=== PATIENT | female | born 1960 | race Caucasian/White ===

== ENCOUNTER 2016-12-30 19:50 | Emergency (ER) | payer MEDICARE, BC ==
[2016-12-30 20:02] VITALS: BP 173/87
--- NOTE | 2016-12-30 20:18 | ER Document Report ---
ED Medical Screen (RME) - General Stated Complaint: TOOTH PAIN Notes: Patient has right lower dental pain that started this morning. I have greeted and performed a rapid initial assessment of this patient. A comprehensive ED assessment and evaluation of the patient, analysis of test results and completion of the medical decision making process will be conducted by additional ED providers. TRAVEL OUTSIDE OF THE [place] IN LAST 30 DAYS: No - Related Data Allergies/Adverse Reactions: Sulfa (Sulfonamide Antibiotics) Allergy (Verified 12/30/16 20:15) Past Medical History Pulmonary Medical History: Reports: Hx Asthma Psychiatric Medical History: Reports: Hx Depression Past Surgical History: Reports: Hx Hysterectomy, Hx Tubal Ligation - Immunizations Hx Diphtheria, Pertussis, Tetanus Vaccination: - unknown Physical Exam - Vital signs Vitals: Temp Pulse Resp BP Pulse Ox 99.2 F 98 16 173/87 H 98 12/30/16 20:01 12/30/16 20:01 12/30/16 20:01 12/30/16 20:01 12/30/16 20:01 - HEENT Teeth diagram: 1 - decay Course - Vital Signs Vital signs: Temp Pulse Resp BP Pulse Ox 99.2 F 98 16 173/87 H 98 12/30/16 20:01 12/30/16 20:01 12/30/16 20:01 12/30/16 20:01 12/30/16 20:01
[2016-12-30] MEDS ORDERED: IBUPROFEN 800 MG TABLET PO ONE (20:19)
== END 2016-12-30 20:53 | disposition left against medical advice (07) ==
LOC: ER 19:50
DX: K02.9 Dental caries, unspecified (principal); K08.89 Other specified disorders of teeth and supporting structures; J45.909 Unspecified asthma, uncomplicated; Z88.2 Allergy status to sulfonamides; Z53.20 Procedure and treatment not carried out because of patient's decision for unspecified reasons
CPT/HCPCS: 99281; A9270

== ENCOUNTER → 2017-06-20 | Outpatient (CLI) | payer MEDICARE, BC ==
--- NOTE | 2017-06-20 10:19 | ST Modified Barium Swallow ---
Recommendation - Recommendations Recommendations: Recommend continuing with outpatient speech therapy home programming. Also recommend mechanical soft diet with hard swallows and alternating bites/sips during meals. Medical Diagnoses - Medical Diagnoses Medical Diagnosis Description & ICD-10 Code(s): dysphagia R13.10 Other Medical Diagnoses/Co-Morbidities: per emr: depression, anxiety, arthritis (causes pain in low back & hips), polyneuropathy (affects left leg), history of lyme disease, enmanuel mountain spotted fever ST Modified Barium Swallow - General Date: 06/20/17 Referring Physician: Dr. Jay Reason for Referral: choking episodes - History History obtained from: Patient, Other - EMR -: Medical - History given per outpatient evaluation: Patient reports diagnosed with Parkinson's disease in October,. Reports speech has worsened in last few weeks. Patient referred to speech therapy by neurologist, Dr. Reid, on . Reports does not have tremors, but does have difficulties speaking and swallowing. Patient reports that she has difficulty chewing meats & swallowing meats, reports eats mainly soft foods, difficulty swallowing pills, and that fermin runs out of her mouth when taking medications or drinking from straw. Reports that for speech, her has difficulty understanding her, that she has slurred speech, and that it is frustrating. Reports when last saw neurologist he increased Miraplex - states dose doubled. However patient expressed concerns that medication negatively affectes speech. Speech language pathologist advised patient to discuss with neurologist. Patient reports recently lost weight, but reports due to antibiotic for lyme disease and enmanuel mountain spotted fever. Patient also reports repeated falls, balance problems, neuropathy in left leg. Medications: Tramadol, Lyrica, Coazepam, Buspar, Abilify. Allergies: sulfa drugs, penicillin - Functional Status Prior Functional Status: INDEPENDENT: feeding - independent Current Functional Limitations: feeding - modified diet - Subjective Patient/caregiver goal(s): safe swallow Cognitive-Linguistic Function: Functional Speech Intelligibility: Reduced intelligibility - mild Current Nutritional Means: PO Current PO diet: Mechanical - cut Current symptoms: Coughing - choking episodes, Drooling Pain: Patient reports, 2/5 - hip pain - Objective Assessment: Upright, Left Lateral - Food Trials Used Food trials used: Thin liquids, Pureed, Regular The patient: Was Able to Self Feed - Oral-Motor Skills Laryngeal Function: Volitional Cough - WNL, Volitional Swallow - WNL, clear voicing - Assessment Oral prep: Normal Labial closure: Adequate Leakage: None Mastication: Adequate Lingual Movement: Weak - reduced lingual lateralization seen Oral stage: Mildly Impaired, Normal for this Procedure - Pharyngeal Stage Initiation of Pharyngeal Stage Reflex: Normal Decreased laryngeal elevation: No Reduced pressure generation: No reduced tongue-based retraction: Yes Pre-swallow pooling in valleculae: None Pre-Swallow pooling in pyriforms: None Reduced Thyro-Hyoid approximation: No Reduced epiglottic excursion: No Post-swallow residulas vallecular: Mild - Fall Risk Assessment Medications/Conditions that increase fall risks include: Antidepressants, sedatives, anti-arrhythmic, diuretic, benzodiazipenes, neuroleptics. BP regulation problems, cardiac problems, balance or gait deficits, neurological problems. Fall Risk Actions Taken: No action needed - Behavioral Observations During evaluation process patient: was pleasant, was cooperative, able to answer questions, provided medical history Mental Status: Alert & Oriented X3 - Treatment / Educational Needs: Treatment/Education Needs: Treatment consisted of patient education on the role of the Speech Pathologist. Patient's plan of care and golas were communicated as well as scheduling and attendance policies. Recommendations for initial home program were shared. Patient demonstrated understanding and verbalized agreement. - Impression/Summary Laryngeal Penetration: No Tracheal Aspiration: no Patient presents with: Oral-Pharyngeal dysph., Mild-Moderate Risk of Aspiration: Minimal Risk of nutritional compromise: None Evaluation and Findings: Patient seen to have residue present at base of tongue after trials of puree and regular textures. This residue resulted in some pooling in valleculae post swallow, able to clear with second swallow. Other swallowing function appeared to be WFL. - Recommendations Solid diet recommendations: Mechanical Soft, Ground Meat, Chopped Meat Liquid Diet Modification: Thin Pt/Family education and followup with MD: Yes Dysphagia therapy with [employer]: dysphagia therapy - currently participating in outpatient speech therapy Recommended techniques: Alternate Bites/Sips Information, Precautions and Recommendations: Patient (Written), Patient (Verbal ) - Time Total Time: 20 - Plan of Care POC Procedures/Codes: other - Outpatient treating therapist to establish goals/ procedures based on assessment results. Strategies to optimize patient understanding include:: ongoing assessment of educational needs, implementation of educational strategies, and re-education. - - -: Thank you for the opportunity to work with this patient and his/her family. Should you have any questions about this patient's plan or progress, I can be reached at [phone]. Charge G Code? - - -: Yes ST Jarquin Impairment Category - Rationale Based On Rationale Based On: Clin Find., Obj Measures - Swallowing Current G8996: CJ 20-39% Impaired Goal G8997: CI 1-19% Impaired
--- NOTE | 2017-06-20 15:14 | RADIOLOGY REPORT (SQ) ---
EXAM DESCRIPTION: SONIYA SWALLOW COMPLETED DATE/TIME: 06/20/2017 8:24 am REASON FOR STUDY: DYSPHAGIA R13.10 DYSPHAGIA, UNSPECIFIED COMPARISON: None. TECHNIQUE: Videofluoroscopic swallowing examination was performed in conjunction with speech patholo gy. Videofluoroscopic imaging was obtained and reviewed and these are the findings: RADIATION DOSE: 1 minutes 44 seconds of fluoroscopy was used. 1 images saved to PACS. LIMITATIONS: None FINDINGS: The patient was brought into the fluoro room and placed upright on a modified barium swall ow chair. The patient was then given multiple consistencies mixed with barium to swallow under live fluoroscopic video guidance. According to the Speech Pathologist there was no penetration or aspirat ion. Surgical plate and screws are seen overlying the lower cervical spine. IMPRESSION: NO EVIDENCE OF PENETRATION OR ASPIRATION. PLEASE SEE SPEECH PATHOLOGIST REPORT FOR OTHE R FINDINGS AND RECOMMENDATIONS. COMMENT: Quality ID [id number]: Final reports for procedures using fluoroscopy that document radiation exp osure indices, or exposure time and number of fluorographic images (if radiation exposure indices are not available) TECHNICAL DOCUMENTATION: JOB ID: [id number] [employer]- All Rights Reserved
== END ==
LOC: RAD 07:45
PROVIDERS: ATTEND Psychiatry & Neurology Neurology
DX: R13.10 Dysphagia, unspecified (principal)
CPT/HCPCS: 74230; G8996; G8997

== ENCOUNTER → 2017-06-27 | Outpatient (CLI) | payer MEDICARE, BC ==
--- NOTE | 2017-06-27 08:21 | RADIOLOGY REPORT (SQ) ---
EXAM DESCRIPTION: MRI HEAD WITHOUT COMPLETED DATE/TIME: 06/27/2017 7:40 am REASON FOR STUDY: PARKINSON'S DISEASE (G20), HEADACHE (R51), SLURRED SPEECH (R47.81) G20 PARKINSON' S DISEASE R51 HEADACHE R47.81 SLURRED SPEECH COMPARISON: 08/11/2016. TECHNIQUE: Multiplanar imaging includes non-contrasted T1, T2, FLAIR, and diffusion with ADC map seq uences. Images stored on PACS. LIMITATIONS: None. FINDINGS: ANATOMY: No anomalies. Normal vascular flow voids. Pituitary fossa normal. CSF SPACES: Normal in size and contour. No hemorrhage. CEREBRUM: Sulci and gyri normal in size and contour. Normal white matter signal on FLAIR imaging. No evidence of hemorrhage, mass, or extraaxial fluid collection. POSTERIOR FOSSA: No signal alteration. No hemorrhage. No edema, masses or mass effect. Internal malik tory canals, cerebello-pontine angles, mastoids normal. DIFFUSION IMAGING: Negative for acute or sub-acute infarction. ORBITS: No masses. Globes normal. PARANASAL SINUSES: Extensive mucous membrane thickening throughout the paranasal sinuses. OTHER: No other significant finding. IMPRESSION: NORMAL MRI OF THE BRAIN WITHOUT INTRAVENOUS GADOLINIUM CONTRAST. EXTENSIVE SINUS DISEASE. EVIDENCE OF ACUTE STROKE: NO. TECHNICAL DOCUMENTATION: JOB ID: [id number] [employer]- All Rights Reserved
== END ==
LOC: RAD 06:58
PROVIDERS: ATTEND Family Medicine
DX: G20 Parkinson's disease (principal); R51 Headache; R47.81 Slurred speech
CPT/HCPCS: 70551

== ENCOUNTER → 2017-08-17 | Outpatient (CLI) | payer MEDICARE, BC ==
--- NOTE | 2017-08-18 12:49 | WOMENS IMAGING REPORT ---
EXAM DESCRIPTION: BILAT SCREENING MAMMO W/CAD COMPLETED DATE/TIME: 08/18/2017 11:30 am REASON FOR STUDY: ROUTINE BILATERAL SCREENING;Z12.31 Z12.31 ENCNTR SCREEN MAMMOGRAM FOR MALIGNANT N EOPLASM OF PRINCE COMPARISON: 2009. 2013. 2015 TECHNIQUE: Standard craniocaudal and mediolateral oblique views of each breast recorded using digita l acquisition. Additional "push-back" craniocaudal and mediolateral oblique images acquired. LIMITATIONS: None. FINDINGS: IMPLANTS: Bilateral subpectoral implants. Findings present which are benign by mammographic criteria. No suspicious masses, calcifications or architectural distortion. Read with the assistance of CAD. .[facility] - R2 Cenova Version 1.3 .[facility] Imaging - R2 Cenova Version 1.3 .[facility] - R2 Cenova Version 2.4 .[facility] [place] Cenova [place] 2.4 .[facility], [facility] - R2 [employer]ic Version 9.2 Benign mammographic findings may include one or more of the following: Smooth masses, popcorn/rim/co arse calcifications, asymmetries, post-procedure changes, and lesions with long-standing stability. IMPRESSION: BENIGN MAMMOGRAPHIC FINDINGS. BIRADS 2 BREAST DENSITY: b. There are scattered areas of fibroglandular density. BIRAD: 2 BENIGN FINDING(S) RECOMMENDATION: ROUTINE SCREENING COMMENT: The patient has been notified of the results by letter per SA requirements. Additional no tification policies are in place for contacting patient with suspicious or incomplete findings. Quality ID #[id number]: The [employer] recommends an annual screening mammogram for women aged 40 years or over. This facility utilizes a reminder system to ensure that all patients receive reminder letters, and/or direct phone calls for appointments. This includes reminders for routine scr eening mammograms, diagnostic mammograms, or other Breast Imaging Interventions when appropriate. Th is patient will be placed in the appropriate reminder system. The [employer] ([employer]) has developed recommendations for screening MRI of the breast s in certain patient populations, to be used in conjunction with mammography. Breast MRI surveillanc e may be appropriate for women with more than 20% lifetime risk of developing breast cancer as deter mined by genetic testing, significant family history of the disease, or history of mantle radiation f or Hodgkins Disease. ACR Practice Guidelines 2008. TECHNICAL DOCUMENTATION: FINDING NUMBER: (1) ASSESSMENT: (1) JOB ID: [id number] [employer]- All Rights Reserved
== END ==
LOC: WI 08:24
PROVIDERS: ATTEND Family Medicine
DX: Z12.31 Encounter for screening mammogram for malignant neoplasm of breast (principal); Z98.82 Breast implant status
CPT/HCPCS: 77067; G0202

== ENCOUNTER 2017-10-02 08:49 | Emergency (ER) | payer MEDICARE, BC ==
[2017-10-02 08:57] VITALS: BP 131/84
--- NOTE | 2017-10-02 09:38 | ER Document Report ---
ED ENT - General Chief Complaint: Ear Injury Stated Complaint: RIGHT EAR LACERATION Time Seen by Provider: 10/02/17 09:10 Mode of Arrival: Ambulatory Information source: Patient Notes: 57-year-old female presented to ED for a laceration to her right earlobe. She states yesterday she was putting her ear ringing in and it was a wire type tear ring and went right through her earlobe. She states she did not come in yesterday but wanted her ear repaired today. I explained to her that we could not be. The ear 24 hours after the injury. TRAVEL OUTSIDE OF THE [place] IN LAST 30 DAYS: No - HPI Onset: Yesterday Onset/Duration: Sudden Severity: None Pain Level: Denies Context: Injury Location of pain: Ears Associated symptoms: Other - Torn earlobe from a earring tearing to her earlobe Similar symptoms previously: No Recently seen / treated by doctor: No - Related Data Allergies/Adverse Reactions: Sulfa (Sulfonamide Antibiotics) Allergy (Verified 10/02/17 08:50) Past Medical History - General Information source: Patient - Social History Smoking Status: Current Every Day Smoker Cigarette use (# per day): Yes - Half pack per day Chew tobacco use (# tins/day): No Smoking Education Provided: Yes - 4 minutes Frequency of alcohol use: None Drug Abuse: None Occupation: None Lives with: Family Family History: Reviewed & Not Pertinent, Other Patient has suicidal ideation: No Patient has homicidal ideation: No - Past Medical History Cardiac Medical History: Reports: None Pulmonary Medical History: Reports: Hx Asthma EENT Medical History: Reports: None Neurological Medical History: Reports: None Endocrine Medical History: Reports: None Renal/ Medical History: Reports: None Malignancy Medical History: Reports: None GI Medical History: Reports: None Musculoskeltal Medical History: Reports None Skin Medical History: Reports None Psychiatric Medical History: Reports: Hx Depression Traumatic Medical History: Reports: None Past Surgical History: Reports: Hx Hysterectomy, Hx Tubal Ligation - Immunizations Hx Diphtheria, Pertussis, Tetanus Vaccination: - unknown Hx Pneumococcal Vaccination: 07/02/16 Review of Systems - Review of Systems Constitutional: No symptoms reported EENT: Other - Torn earlobe on the right Cardiovascular: No symptoms reported Respiratory: No symptoms reported Gastrointestinal: No symptoms reported Genitourinary: No symptoms reported Female Genitourinary: No symptoms reported Musculoskeletal: No symptoms reported Skin: No symptoms reported Hematologic/Lymphatic: No symptoms reported Neurological/Psychological: No symptoms reported -: Yes All other systems reviewed and negative Physical Exam - Vital signs Vitals: Temp Pulse Resp BP Pulse Ox 98.1 F 108 H 18 131/84 H 97 10/02/17 08:56 10/02/17 08:56 10/02/17 08:56 10/02/17 08:56 10/02/17 08:56 Interpretation: Normal - General General appearance: Appears well, Alert - HEENT Head: Normocephalic, Atraumatic Eyes: Normal Pupils: PERRL Ears: Other - Right earlobe torn from an ear ring External canal: Normal Tympanic membrane: Normal Sinus: Normal Nasal: Normal Mouth/Lips: Normal Mucous membranes: Normal Pharynx: Normal Neck: Normal - Respiratory Respiratory status: No respiratory distress Chest status: Nontender Breath sounds: Normal Chest palpation: Normal - Cardiovascular Rhythm: Regular Heart sounds: Normal auscultation Murmur: No - Abdominal Inspection: Normal Distension: No distension Bowel sounds: Normal Tenderness: Nontender Organomegaly: No organomegaly - Back Back: Normal, Nontender - Extremities General upper extremity: Normal inspection, Nontender, Normal color, Normal ROM , Normal temperature General lower extremity: Normal inspection, Nontender, Normal color, Normal ROM , Normal temperature, Normal weight bearing. No: Anjali's sign - Neurological Neuro grossly intact: Yes Cognition: Normal Orientation: AAOx4 [place] Coma Scale Eye Opening: Spontaneous [place] Coma Scale Verbal: Oriented Nanda Coma Scale Motor: Obeys Commands [place] Coma Scale Total: 15 Speech: Normal Motor strength normal: LUE, RUE, LLE, RLE Sensory: Normal - Psychological Associated symptoms: Normal affect, Normal mood - Skin Skin Temperature: Warm Skin Moisture: Dry Skin Color: Normal Course - Re-evaluation Re-evalutation: 10/02/17 22:26 Patient informed we could not suture this at this time that the only person who could repair this now would be a plastic surgeon. Patient given name and number of plastic surgeon. - Vital Signs Vital signs: Temp Pulse Resp BP Pulse Ox 98.1 F 108 H 18 131/84 H 97 10/02/17 08:56 10/02/17 08:56 10/02/17 08:56 10/02/17 08:56 10/02/17 08:56 Discharge - Discharge Clinical Impression: HTN (hypertension) Torn right ear lobe Qualifiers: Encounter type: initial encounter Qualified Code(s): S01.311A - Laceration without foreign body of right ear, initial encounter Condition: Stable Disposition: HOME, SELF-CARE Additional Instructions: You were seen today for a torn earlobe while placing a hearing in your ear. This was done yesterday and cannot be sutured today in the emergency room. I have given you the name and number of Dr. Marrero to follow-up with he has a plastic surgeon. NON-SUTURED LACERATION: Your laceration did not require suturing. Some lacerations cannot be sutured because of increased infection risk, while others simply don't need stitches because they are shallow or very short. Your injury should be protected while it heals. Usually complete healing takes 10 to 14 days. Keep the dressing clean and dry, and change it every day. If you notice increasing pain, redness, swelling, drainage, or tender lumps in the armpit or groin above the injury, infection may be present. You should call the doctor at once. SOAP CLEANSING: Gently wash the wound daily using a mild soap (like Ivory, Phisoderm, Neutrogena). Use warm water, rubbing gently until all debris, ooze, and crusting have been washed from the wound. Allow to dry briefly (about 10 minutes) after cleaning. Repeat this cleansing at least three times a day for the first two days and then once or twice a day. High Blood Pressure When your blood pressure was taken today it was elevated. Today's reading was__131/84 . Pre-hypertension/Hypertension: The patient has been informed that they may have pre-hypertension or Hypertension based on a blood pressure reading in the emergency department. I recommend that the patient call the primary care provider listed on their discharge instructions or a physician of their choice this wee to arrange follow up for further evaluation of possible pre- hypertension or Hypertension. Sometimes, stress or illness causes a temporary elevation of your blood pressure. We suggest that you get your blood pressure measured three more times during the next few days to see if this is more than a temporary abnormality. If your blood pressure is greater than 150/90 on each occasion, you must have treatment. Some simple things you can do to help are: If you have blood pressure medicine but aren't using it regularly, start taking it again. Get some aerobic exercise for at least 20 minutes on a daily basis. (See your doctor before beginning a new exercise program.) Eat a low-fat diet. Lose excess weight. Avoid salty foods and avoid adding salt to any of the foods you eat. Avoid diet pills, decongestants, "energizing" herbs, and other medicines that elevate blood pressure. If left untreated, hypertension greatly enhances your risk for developing heart disease and strokes. Please don't ignore this problem. ANTIBIOTIC OINTMENT PROTECTION: Your wounds are such that dressing them is not practical or optional. After cleansing, you should apply a thin coating of antibiotic ointment ( Bacitracin, not Neosporin) to the wounds at least three times daily. This lessens infection risk, and may decrease the amount of scarring. Use a q-tip or dull butter knife, not your finger, to apply this ointment. Any debris or ooze which builds up in the ointment should be gently rubbed off with a sterile gauze pad. Harder crusting may need to be gently scrubbed off with a clean wash cloth with soap and warm water, perhaps applying a warm, wet wash cloth to the wound for ten minutes first. Development of redness, severe itching, or blistering may mean allergy to the ointment. See the doctor. FOLLOW-UP CARE: If you have been referred to a physician for follow-up care, call the physician s office for an appointment as you were instructed or within the next two days. If you experience worsening or a significant change in your symptoms, notify the physician immediately or return to the Emergency Department at any time for re-evaluation. Forms: Elevated Blood Pressure, Smoking Cessation Education Referrals: MAYRA MARRERO MD [ACTIVE STAFF] - Follow up as needed
== END 2017-10-02 09:40 | disposition home or self-care (01) ==
LOC: ER 08:49
DX: S01.311A Laceration without foreign body of right ear, initial encounter (principal); W45.8XXA Other foreign body or object entering through skin, initial encounter; Y93.89 Activity, other specified; I10 Essential (primary) hypertension; J45.909 Unspecified asthma, uncomplicated; F17.210 Nicotine dependence, cigarettes, uncomplicated; Z71.6 Tobacco abuse counseling; Z88.2 Allergy status to sulfonamides
CPT/HCPCS: 99282; 99406

== ENCOUNTER 2018-09-15 08:46 | Emergency (ER) | payer MEDICARE, BC ==
[2018-09-15] MEDS ORDERED: NORMAL SALINE 1000 ML 1,000 ML IV ONE ×2 (09:52→11:22)
[2018-09-15] MEDS ORDERED: ONDANSETRON HCL INJ/PF 4 MG/2 ML SDV IV ONE (09:53)
[2018-09-15 10:18] LABS: ABSOLUTE BASOPHILS # (AUTO) 0.1 10^3/uL (0.0-0.2); ABSOLUTE EOSINOPHILS # (AUTO) 0.2 10^3/uL (0.0-0.6); ABSOLUTE LYMPHOCYTES (AUTO) 2.1 10^3/uL (0.5-4.7); ABSOLUTE MONOCYTES (AUTO) 0.4 10^3/uL (0.1-1.4); ABSOLUTE NEUT (AUTO) 3.7 10^3/uL (1.7-8.2); BASOPHILS % (AUTO) 1.1 % (0-2); EOSINOPHILS % (AUTO) 3.2 % (0-6); HEMATOCRIT 47.1 % (36.0-47.0); HEMOGLOBIN 16.3 g/dL (12.0-15.5); LYMPHOCYTES % (AUTO) 31.9 % (13-45); MEAN CORPUSCULAR HEMOGLOBIN 30.8 pg (27.0-33.4); MEAN CORPUSCULAR HGB CONC 34.6 g/dL (32.0-36.0); MEAN CORPUSCULAR VOLUME 89 fl (80-97); MONOCYTES % (AUTO) 6.6 % (3-13); PLATELET COUNT 174 10^3/uL (150-450); RED BLOOD COUNT 5.29 10^6/uL (3.72-5.28); RED CELL DISTRIBUTION WIDTH 13.2 % (11.5-14.0); SEGMENTED NEUTROPHILS % (AUTO) 57.2 % (42-78); TOTAL CELLS COUNTED % (AUTO) 100 %; WHITE BLOOD COUNT 6.5 10^3/uL (4.0-10.5)
[2018-09-15 10:25] LABS: ALANINE AMINOTRANSFERASE 40 U/L (9-52); ALBUMIN 4.8 g/dL (3.5-5.0); ALKALINE PHOSPHATASE 121 U/L (38-126); ANION GAP 14 (5-19); ASPARTATE AMINO TRANSFERASE 37 U/L (14-36); BILIRUBIN,DIRECT 0.4 mg/dL (0.0-0.4); BILIRUBIN,TOTAL 1.4 mg/dL (0.2-1.3); BLOOD UREA NITROGEN 17 mg/dL (7-20); CARBON DIOXIDE 24 mmol/L (22-30); CHLORIDE 107 mmol/L (98-107); GLUCOSE 131 mg/dL (75-110); LIPASE 54.5 U/L (23-300); POTASSIUM 3.9 mmol/L (3.6-5.0); TOTAL PROTEIN 7.5 g/dL (6.3-8.2)
[2018-09-15 10:32] LABS: APPEARANCE,URINE SLIGHTLY-CLOUDY; BILIRUBIN,URINE SMALL (NEGATIVE); COLOR,URINE AMBER; GLUCOSE, URINE 50 mg/dL (NEGATIVE); KETONES,URINE 80 mg/dL (NEGATIVE); LEUKOCYTE ESTERASE,URINE NEGATIVE (NEGATIVE); NITRITE,URINE NEGATIVE (NEGATIVE); PROTEIN,URINE 30 mg/dL (NEGATIVE); URINE SPECIFIC GRAVITY 1.031
--- NOTE | 2018-09-15 10:34 | ER Document Report ---
ED GI/ - General Chief Complaint: Abdominal Pain Stated Complaint: VOMITING Time Seen by Provider: 09/15/18 09:52 Information source: Patient Notes: Patient is a 58-year-old female with past medical history as recorded who presents today stating that she has had about 2 days of nausea, vomiting, and diarrhea. She has been afebrile. She denies any blood in the vomit or diarrhea. She states some periumbilical nonradiating abdominal discomfort. She denies any dysuria or flank pain. She denies any aggravating or relieving factors. She denies any recent antibiotics, trips or travel. TRAVEL OUTSIDE OF THE [place] IN LAST 30 DAYS: No - HPI Patient complains to provider of: Other - See above Onset: Other - See above Timing/Duration: Gradual Quality of pain: Achy Severity at maximum: Mild Severity in ED: Mild Pain Level: 1 Location: Other - See above Vaginal bleeding (Compared to normal period): None Associated symptoms: Other - See above Exacerbated by: Denies Relieved by: Denies Similar symptoms previously: No Recently seen / treated by doctor: No - Related Data Allergies/Adverse Reactions: Sulfa (Sulfonamide Antibiotics) Allergy (Verified 09/15/18 08:47) Past Medical History - Social History Smoking Status: Unknown if Ever Smoked Family History: Reviewed & Not Pertinent, Other Pulmonary Medical History: Reports: Hx Asthma Renal/ Medical History: Denies: Hx Peritoneal Dialysis Psychiatric Medical History: Reports: Hx Depression Past Surgical History: Reports: Hx Hysterectomy, Hx Tubal Ligation - Immunizations Hx Diphtheria, Pertussis, Tetanus Vaccination: - unknown Hx Pneumococcal Vaccination: 07/02/16 Review of Systems - Review of Systems Constitutional: denies: Fever EENT: denies: Eye discharge, Nose discharge Cardiovascular: denies: Chest pain, Palpitations Respiratory: denies: Short of breath Gastrointestinal: Diarrhea, Vomiting. denies: Blood in vomit Genitourinary: denies: Dysuria Musculoskeletal: denies: Leg swelling Skin: Other - no hives. denies: Rash Neurological/Psychological: Other - no slurred speech -: Yes All other systems reviewed and negative Physical Exam - Vital signs Vitals: Temp Pulse Resp BP Pulse Ox 98.7 F 125 H 18 153/100 H 96 09/15/18 08:48 09/15/18 08:48 09/15/18 08:48 09/15/18 08:48 09/15/18 08:48 Notes: Reviewed vital signs and nursing note as charted by RN. CONSTITUTIONAL: Alert and oriented and responds appropriately to questions. Well -appearing; well-nourished HEAD: Normocephalic; atraumatic EYES: Sclerae non-icteric ENT: Normal nose; no rhinorrhea; moist mucous membranes; pharynx without lesions noted NECK: Supple without meningismus; non-tender; no cervical lymphadenopathy, no masses CARD: Tachycardic but regular; no murmurs; symmetric distal pulses RESP: Normal chest excursion without splinting or tachypnea; breath sounds clear and equal bilaterally; no wheezes, no rhonchi, no rales ABD/GI: Normal bowel sounds; non-distended; soft, non-tender currently to deep palpation of all 4 quadrants of the abdomen BACK: The back appears normal and is non-tender to palpation EXT: Normal ROM in all joints; non-tender to palpation; no edema SKIN: No acute lesions noted NEURO: CN 2-12 intact; 5/5 bilateral upper and lower extremity strength with sensation intact to light touch PSYCH: The patient's mood and manner are appropriate. Grooming and personal hygiene are appropriate. Course - Re-evaluation Re-evalutation: 09/15/18 10:33 Given the history and physical examination, we will obtain a three-way x-ray of the abdomen, basic labs, urine analysis, liver panel and lipase, and reassess. Patient has had no recent antibiotics, trips or travel, no previous history of bowel obstructions or bowel surgeries, and has been afebrile. I do not believe a CT scan is warranted at this moment. 09/15/18 11:45 Three-way x-ray of the abdomen as recorded. Labs as recorded. Second liter of fluid has been given secondary to the ketones shown in the urine. Patient has had no vomiting. Repeat abdominal examination is unremarkable. 09/15/18 12:52 Heart rate has improved. Patient's abdomen examination is benign with no focal tenderness. Heart rate is currently 95. Patient has had no vomiting here. Given the above history and physical examination, afebrile, labs as recorded, 2 L of fluid provided, improved heart rate, with repeat examination as recorded, I do not believe that the patient requires any further workup at this time. Patient will be discharged home with strict return precautions as well as a prescription for Zofran with follow-up with the primary care provider. - Vital Signs Vital signs: Temp Pulse Resp BP Pulse Ox 98.7 F 125 H 18 153/100 H 96 09/15/18 08:48 09/15/18 08:48 09/15/18 08:48 09/15/18 08:48 09/15/18 08:48 - Laboratory Result Diagrams: 09/15/18 09:40 09/15/18 09:40 Laboratory results interpreted by me: 09/15/18 09/15/18 09/15/18 09:40 09:40 09:45 RBC 5.29 H Hgb 16.3 H Hct 47.1 H Glucose 131 H Total Bilirubin 1.4 H AST 37 H Urine Protein 30 H Urine Glucose (UA) 50 H Urine Ketones 80 H Urine Blood MODERATE H Urine Bilirubin SMALL H Urine Urobilinogen 2.0 H Discharge - Discharge Clinical Impression: Nausea vomiting and diarrhea Condition: Good Disposition: HOME, SELF-CARE Additional Instructions: Come back immediately for any return of abdominal discomfort, persistent vomiting or diarrhea, fevers, blood in the vomit or diarrhea, lightheadedness or dizziness, or any other acute problems. Please make sure that you follow-up with the primary care physician as we have discussed. Prescriptions: Ondansetron [Zofran Odt 4 mg Tablet] 1 tab PO Q6H #15 tab.genetdis Referrals: SHANTHI TAVERAS MD [Primary Care Provider] - Follow up as needed
--- NOTE | 2018-09-15 11:38 | RADIOLOGY REPORT (SQ) ---
EXAM DESCRIPTION: ACUTE ABDOMEN SERIES COMPLETED DATE/TIME: 09/15/2018 11:16 am REASON FOR STUDY: 7; vomiting and diarrhea COMPARISON: None. NUMBER OF VIEWS: Three views. TECHNIQUE: Frontal chest, supine abdomen and upright/decubitus abdomen radiographic images acquired. LIMITATIONS: None. FINDINGS: CHEST: Lungs clear of infiltrates. FREE AIR: None. No abnormal gas collections. BOWEL GAS PATTERN: Nonobstructive pattern. No dilated loops or air fluid levels. CALCIFICATIONS: No suspicious calcifications. HARDWARE: None in the abdomen. SOFT TISSUES: No gross mass or suggestion of organomegaly. BONES: No acute fracture. No worrisome bone lesions. OTHER: No other significant finding. IMPRESSION: NO RADIOGRAPHIC EVIDENCE FOR ACUTE ABDOMINAL DISEASE. TECHNICAL DOCUMENTATION: JOB ID: [id number] [employer]- All Rights Reserved Reading location - IP/workstation name: [email or web address]
[2018-09-15 13:37] VITALS: BP 127/62
== END 2018-09-15 12:53 | disposition home or self-care (01) ==
LOC: ER 08:46
DX: R11.2 Nausea with vomiting, unspecified (principal); R19.7 Diarrhea, unspecified; R10.9 Unspecified abdominal pain; R10.33 Periumbilical pain; J45.909 Unspecified asthma, uncomplicated; R00.0 Tachycardia, unspecified
CPT/HCPCS: 99284; 96361; 96374; 36415; 83690; 85025; 80053; 81001; 74022; J2405; J7030

== ENCOUNTER → 2018-12-04 | Outpatient (CLI) | payer MEDICARE, BC ==
--- NOTE | 2018-12-04 15:25 | WOMENS IMAGING REPORT ---
EXAM DESCRIPTION: 3D SCREENING MAMMO BILAT COMPLETED DATE/TIME: 12/04/2018 9:34 am REASON FOR STUDY: Z12.31 ENCOUNTER FOR SCREENING MAMMOGRAM FOR MALIGNANT NEOPLASM OF BREAST Z12.31 ENCNTR SCREEN MAMMOGRAM FOR MALIGNANT NEOPLASM OF PRINCE COMPARISON: Multiple since 2009 TECHNIQUE: Standard craniocaudal and mediolateral oblique views of each breast recorded using digita l acquisition and breast tomosynthesis. Additional "push-back craniocaudal and mediolateral oblique images acquired. LIMITATIONS: None. FINDINGS: IMPLANTS: Bilateral subpectoral implants. Findings present which are benign by mammographic criteria. No suspicious masses, calcifications or a rchitectural distortion. Read with the assistance of CAD. .[facility] - R2 Cenova Version 1.3 .[facility] - R2 Cenova Version 2.1 .[facility] - R2 Cenova Version 2.4 .[facility] - R2 Cenova Version 2.4 .[facility] - R2 Skiver Counter Version 9.2 Benign mammographic findings may include one or more of the following: Smooth masses, popcorn/rim/co arse calcifications, asymmetries, post-procedure changes, and lesions with long-standing stability. IMPRESSION: BENIGN MAMMOGRAPHIC FINDINGS. BIRADS 2 BREAST DENSITY: b. There are scattered areas of fibroglandular density. BIRAD: 2 BENIGN FINDING(S) RECOMMENDATION: ROUTINE SCREENING COMMENT: The patient has been notified of the results by letter per SA requirements. Additional no tification policies are in place for contacting patient with suspicious or incomplete findings. Quality ID #[id number]: The [employer] recommends an annual screening mammogram for women aged 40 years or over. This facility utilizes a reminder system to ensure that all patients receive reminder letters, and/or direct phone calls for appointments. This includes reminders for routine scr eening mammograms, diagnostic mammograms, or other Breast Imaging Interventions when appropriate. Th is patient will be placed in the appropriate reminder system. The [employer] (ACR) has developed recommendations for screening MRI of the breast s in certain patient populations, to be used in conjunction with mammography. Breast MRI surveillanc e may be appropriate for women with more than 20% lifetime risk of developing breast cancer as deter mined by genetic testing, significant family history of the disease, or history of mantle radiation f or Hodgkins Disease. ACR Practice Guidelines 2008. DBT Technology DBT is a type of tomographic mammography. With conventional mammography, overlapping breast tissue ma y make lesions difficult to detect, even with good compression. DBT uses an x-ray tube that rotates a round the breast, taking images at different angles. These images are then combined to create thin sl ices of the breast that the radiologist can view as a 3D reconstruction. The Hologic unit can perform full-field digital mammograms (2D imaging); or DBT (3D imaging); or both, in a combination mode that quickly performs both the mammogram and the tomosynthesis scan while the breast is still compressed. PQRS 6045F: Fluoroscopic imaging is not utilized for breast tomosynthesis. TECHNICAL DOCUMENTATION: FINDING NUMBER: (1) ASSESSMENT: (1) JOB ID: [id number] [employer]- All Rights Reserved Reading location - IP/workstation name: [email or web address]
== END ==
LOC: WI 08:54
PROVIDERS: ATTEND Family Medicine
DX: Z12.31 Encounter for screening mammogram for malignant neoplasm of breast (principal); Z98.82 Breast implant status
CPT/HCPCS: 77063; 77067

== ENCOUNTER → 2019-06-13 | Outpatient (CLI) | payer MEDICARE, BC ==
--- NOTE | 2019-06-13 12:59 | RADIOLOGY REPORT (SQ) ---
EXAM DESCRIPTION: LUMBAR SPINE COMPLETE COMPLETED DATE/TIME: 06/13/2019 12:45 pm REASON FOR STUDY: GRADUALLY WORSENING LBP; NOW ALSO WITH SCIATICA M54.42 LUMBAGO WITH SCIATICA, LEF T SIDE COMPARISON: None. NUMBER OF VIEWS: Five views including obliques. TECHNIQUE: AP, lateral, oblique, and sacral radiographic images acquired of the lumbar spine. LIMITATIONS: None. FINDINGS: MINERALIZATION: Normal. SEGMENTATION: Normal. No transitional anatomy. ALIGNMENT: Normal. VERTEBRAE: Maintained height. No fracture or worrisome bone lesion. DISCS: Preserved height. No significant osteophytes or end plate irregularity. POSTERIOR ELEMENTS: Pedicles and facets are intact. Facet arthropathy at L5-S1. No pars defect or p osterior arch defects. HARDWARE: None in the spine. PARASPINAL SOFT TISSUES: Normal. PELVIS: Intact as visualized. No fractures or worrisome bone lesions. SI joints intact. OTHER: No other significant finding. IMPRESSION: FACET ARTHROPATHY AT L5-S1. NO OTHER SIGNIFICANT RADIOGRAPHIC FINDINGS. TECHNICAL DOCUMENTATION: JOB ID: [id number] [employer]- All Rights Reserved Reading location - IP/workstation name: [email or web address]
== END ==
LOC: OD 12:21
PROVIDERS: ATTEND Family Medicine
DX: M54.42 Lumbago with sciatica, left side (principal); G62.9 Polyneuropathy, unspecified
CPT/HCPCS: 72110

== ENCOUNTER 2019-07-11 17:16 | Emergency (ER) | payer MEDICARE, BC ==
[2019-07-11] MEDS ORDERED: NORMAL SALINE 1000 ML 1,000 ML IV ONE (17:41)
--- NOTE | 2019-07-11 17:43 | ER Document Report ---
ED Medical Screen (RME) - General Stated Complaint: WEAKNESS,THIRSTY,WEIGHT LOSS Time Seen by Provider: 07/11/19 17:39 Primary Care Provider: SHANTHI TAVERAS MD [Primary Care Provider] - Follow up as needed Mode of Arrival: Ambulatory Information source: Patient, Relative Notes: This 59-year-old female with history of anxiety depression presents to the emergency department for weakness dehydration. reports that she has been depressed has not had anything to eat or drink for the past 8 days. They saw their [facility] provider today and was told to come the emergency department for IV fluids. Patient denies suicidal or homicidal ideations. I have greeted and performed a rapid initial assessment of this patient. A comprehensive ED assessment and evaluation of the patient, analysis of test results and completion of the medical decision making process will be conducted by additional ED providers. Dictation of this chart was performed using voice recognition software; therefore, there may be some unintended grammatical errors. TRAVEL OUTSIDE OF THE [place] IN LAST 30 DAYS: No - Related Data Allergies/Adverse Reactions: Sulfa (Sulfonamide Antibiotics) Allergy (Verified 09/15/18 08:47) Past Medical History Pulmonary Medical History: Reports: Hx Asthma Renal/ Medical History: Denies: Hx Peritoneal Dialysis Psychiatric Medical History: Reports: Hx Depression Past Surgical History: Reports: Hx Hysterectomy, Hx Tubal Ligation - Immunizations Hx Diphtheria, Pertussis, Tetanus Vaccination: - unknown Physical Exam - Vital signs Vitals: Temp Pulse Resp BP Pulse Ox 97.9 F 116 H 18 154/100 H 95 07/11/19 17:19 07/11/19 17:19 07/11/19 17:19 07/11/19 17:19 07/11/19 17:19 Course - Vital Signs Vital signs: Temp Pulse Resp BP Pulse Ox 97.9 F 116 H 18 154/100 H 95 07/11/19 17:19 07/11/19 17:19 07/11/19 17:19 07/11/19 17:19 07/11/19 17:19 Doctor's Discharge - Discharge Referrals: SHANTHI TAVERAS MD [Primary Care Provider] - Follow up as needed
[2019-07-11 18:45] LABS: ABSOLUTE BASOPHILS # (AUTO) 0.1 10^3/uL (0.0-0.2); ABSOLUTE EOSINOPHILS # (AUTO) 0.1 10^3/uL (0.0-0.6); ABSOLUTE LYMPHOCYTES (AUTO) 2.5 10^3/uL (0.5-4.7); ABSOLUTE MONOCYTES (AUTO) 0.7 10^3/uL (0.1-1.4); ABSOLUTE NEUT (AUTO) 3.9 10^3/uL (1.7-8.2); BASOPHILS % (AUTO) 1.2 % (0-2); EOSINOPHILS % (AUTO) 1.5 % (0-6); HEMATOCRIT 51.1 % (36.0-47.0); HEMOGLOBIN 17.4 g/dL (12.0-15.5); LYMPHOCYTES % (AUTO) 34.1 % (13-45); MEAN CORPUSCULAR HEMOGLOBIN 30.4 pg (27.0-33.4); MEAN CORPUSCULAR HGB CONC 34.1 g/dL (32.0-36.0); MEAN CORPUSCULAR VOLUME 89 fl (80-97); MONOCYTES % (AUTO) 9.7 % (3-13); PLATELET COUNT 191 10^3/uL (150-450); RED BLOOD COUNT 5.74 10^6/uL (3.72-5.28); RED CELL DISTRIBUTION WIDTH 13.5 % (11.5-14.0); SEGMENTED NEUTROPHILS % (AUTO) 53.5 % (42-78); TOTAL CELLS COUNTED % (AUTO) 100 %; WHITE BLOOD COUNT 7.3 10^3/uL (4.0-10.5)
[2019-07-11 19:03] LABS: ALBUMIN 4.8 g/dL (3.5-5.0); ALKALINE PHOSPHATASE 113 U/L (38-126); ANION GAP 17 (5-19); ASPARTATE AMINO TRANSFERASE 21 U/L (14-36); BILIRUBIN,DIRECT 0.3 mg/dL (0.0-0.4); BILIRUBIN,TOTAL 1.2 mg/dL (0.2-1.3); BLOOD UREA NITROGEN 17 mg/dL (7-20); CALCIUM 10.5 mg/dL (8.4-10.2); CARBON DIOXIDE 23 mmol/L (22-30); CHLORIDE 100 mmol/L (98-107); GLUCOSE 146 mg/dL (75-110); POTASSIUM 3.3 mmol/L (3.6-5.0); TOTAL PROTEIN 7.9 g/dL (6.3-8.2)
--- NOTE | 2019-07-11 19:08 | EKG REPORT ---
SEVERITY:- ABNORMAL ECG - SINUS TACHYCARDIA NONSPECIFIC T ABNORMALITIES, INFERIOR LEADS : Confirmed by: Xavier Kearns MD 11-Jul-2019 19:07:34
[2019-07-11 19:12] LABS: APPEARANCE,URINE TURBID; BILIRUBIN,URINE SMALL (NEGATIVE); COLOR,URINE YELLOW; GLUCOSE, URINE 50 mg/dL (NEGATIVE); KETONES,URINE 80 mg/dL (NEGATIVE); LEUKOCYTE ESTERASE,URINE MODERATE (NEGATIVE); NITRITE,URINE NEGATIVE (NEGATIVE); PROTEIN,URINE 100 mg/dL (NEGATIVE); URINE SPECIFIC GRAVITY 1.029
[2019-07-11] MEDS ORDERED: POTASSIUM CHLORIDE 20 MEQ PACKET PO ONE (20:37)
--- NOTE | 2019-07-11 20:40 | ER Document Report ---
ED General - General Chief Complaint: Psych Problem Stated Complaint: WEAKNESS,THIRSTY,WEIGHT LOSS Time Seen by Provider: 07/11/19 17:39 Primary Care Provider: SHANTHI TAVERAS MD [Primary Care Provider] - Follow up as needed Mode of Arrival: Ambulatory TRAVEL OUTSIDE OF THE [place] IN LAST 30 DAYS: No - HPI Notes: 59-year-old female with an established long-standing history of depression presents with worsening depression and referral from her psychiatrist for inpatient stabilization. Patient apparently for the last 2 weeks has not been eating or drinking very much at all, has had severe depression, 8 pound weight loss, was seen as an outpatient today and felt to have dehydration and needing of medical work-up and ultimately inpatient crisis stabilization. Of note, couple weeks ago she stopped taking all of her medications except for clonazepam and Trintellix. This apparently was an error and she was not supposed to do this. Additionally, she has had at least 3 or 4 deaths in family members at this time of the year, this is apparently, according to her , a "bad time of the year for her". Patient denies any active suicidal or homicidal ideation, no hallucinations or delusions. No alcohol or drug abuse. Moderate intensity, gradual onset, nonradiating. No other modifying factors, no other associated symptoms, no other provocative or palliative factors. - Related Data Allergies/Adverse Reactions: Sulfa (Sulfonamide Antibiotics) Allergy (Verified 09/15/18 08:47) Past Medical History - General Information source: Patient, Relative - Social History Smoking Status: Former Smoker Chew tobacco use (# tins/day): No Frequency of alcohol use: None Drug Abuse: None Family History: Reviewed & Not Pertinent, Other Patient has suicidal ideation: No Patient has homicidal ideation: No - Medical History Notes: Includes severe depression Pulmonary Medical History: Reports: Hx Asthma Renal/ Medical History: Denies: Hx Peritoneal Dialysis Psychiatric Medical History: Reports: Hx Depression Past Surgical History: Reports: Hx Hysterectomy, Hx Tubal Ligation - Immunizations Hx Diphtheria, Pertussis, Tetanus Vaccination: - unknown Hx Pneumococcal Vaccination: 07/02/16 Review of Systems - Review of Systems Notes: Review of systems as in the history of present illness, otherwise negative x 10 systems. Physical Exam - Vital signs Vitals: Temp Pulse Resp BP Pulse Ox 97.9 F 116 H 18 154/100 H 95 07/11/19 17:19 07/11/19 17:19 07/11/19 17:19 07/11/19 17:19 07/11/19 17:19 - Notes Notes: General: Well developed . HEENT: Normocephalic, atraumatic. Pupils equal round reactive to light. No JVD. Chest: No trauma. Respiratory: Good air exchange, normal excursion. Cardiac: Regular rhythm. No murmurs or gallops. Abdomen: Soft, benign. Nondistended. Nontender. Back: No asymmetry or gross abnormality. Motor: Grossly normal power and tone. Neurologic: Alert, nonfocal. Cranial nerves II-12 are intact. Sensation intact. Vascular: Well perfused. Normal peripheral pulses. Skin: No petechiae or purpura. Course - Re-evaluation Re-evalutation: 07/11/19 20:39 59-year-old female severe depression, anhedonia anorexia and clinical evidence of mild dehydration. Patient was evaluated by the [facility] provider prior to my evaluation. Studies / interventions have been ordered by this provider and may still be pending. Labs thus far unremarkable with the exception of urine showing hematuria, pyuria but no obvious bacteriuria. Patient does not have any antecedent symptoms to suggest UTI or pyelonephritis. I have already instructed her and her with regard to the critical need for outpatient follow-up for her urine findings. Additional labs were added on, patient would likely benefit from inpatient crisis stabilization will be evaluated by the psychiatric team in the morning. 07/12/19 01:02 Patient's laboratory work-up was evaluated and is unremarkable the exception of mild hypokalemia.. She is hydrated, is received oral potassium, otherwise medically stable, will be seen by the psychiatric team in the morning for possible inpatient stabilization. - Vital Signs Vital signs: Temp Pulse Resp BP Pulse Ox 97.9 F 116 H 18 154/100 H 95 07/11/19 17:19 07/11/19 17:19 07/11/19 17:19 07/11/19 17:19 07/11/19 17:19 - Laboratory Result Diagrams: 07/11/19 18:26 07/11/19 18:26 Laboratory results interpreted by me: 07/11/19 07/11/19 07/11/19 17:55 18:26 18:26 RBC 5.74 H Hgb 17.4 H Hct 51.1 H Potassium 3.3 L Glucose 146 H Calcium 10.5 H Urine Protein 100 H Urine Glucose (UA) 50 H Urine Ketones 80 H Urine Blood MODERATE H Urine Bilirubin SMALL H Urine Urobilinogen 4.0 H Ur Leukocyte Esterase MODERATE H Acetaminophen 07/11/19 18:26 RBC Hgb Hct Potassium Glucose Calcium Urine Protein Urine Glucose (UA) Urine Ketones Urine Blood Urine Bilirubin Urine Urobilinogen Ur Leukocyte Esterase Acetaminophen < 10 L Discharge - Discharge Clinical Impression: Depression Qualifiers: Depression Type: unspecified Qualified Code(s): F32.9 - Major depressive disorder, single episode, unspecified Condition: Serious Disposition: PSYCH HOSP/UNIT Referrals: SHANTHI TAVERAS MD [Primary Care Provider] - Follow up as needed
[2019-07-11 21:03] LABS: ACETAMINOPHEN < 10 ug/mL (10-30); ALCOHOL < 10 mg/dL (NONE DETECTED)
[2019-07-11 21:16] LABS: URINE AMPHETAMINES SCREEN NEGATIVE; URINE BARBITURATES SCREEN NEGATIVE; URINE BENZODIAZEPINES SCREEN UNCONFIRMED POSITIVE; URINE COCAINE SCREEN NEGATIVE; URINE MARIJUANA (THC) SCREEN NEGATIVE; URINE METHADONE SCREEN NEGATIVE; URINE PHENCYCLIDINE SCREEN NEGATIVE
--- NOTE | 2019-07-12 12:03 | PSYCHOLOGICAL NOTE ---
Psych Note - Psych Note Date seen by psych provider: 07/12/19 Time seen by psych provider: 10:00 Psych Note: Reason for Consult:for possible inpatient stabilization Consent permissions: Patient's windows infrastructure engineer caregiver, , at bedside per patient's request Clinician spoke with patient and , who is patient's primary caregiver. Patient is aware of medical concerns. Patient denies depression, however complains of no appetite and "severe anxiety" subsequent to stopping medications approximately 5-7 days ago. Patient and state there was a misunderstanding with medication recommendations. Patient complains of loss of appetite that presented at the same time medications were stopped. Clinician discussed with patient and about talking to the medical provider to consider prescribing appetite stimulant due to patient's lack of appetite. This recommendation was discussed because of the resent loss of appetite that resulted in an "8lb" weigh loss in a week. Patient denies suicidal/homicidal ideation. Client and patient stated the main concern is increased anxiety. Chart review conducted. Patient arrived with information from her PCP. Patient was administered PHQ-9 by routine provider (X=24) that suggests severe depression, recurrent severe without psychotic features. Patient was prescribed Trintellix: 10MG 1x daily by PCP. Patinent was advised by PCP to discontinue Propranolol HC1 10MG 3x daily, Buspirone 15MG 3x daily, Abilitfy 5MG 2x daily, Cogentin 1MG 1x daily, and Clonazepam 1MG 3x daily. Client was advised by PCP to continue taking Clonazepan 1MG 3x daily, Tramadol HC1 50MG every 6 hours as needed, Neupro 4MG/24HR patch 1x daily, and Lyrica 200MG 3x daily. Patient is alert and orientated to person, place, time and circumstance. Mood is euthymic with congruent affect. Patient denies suicidal and homicidal ideation. Delusions are absent and behaviors congruent with an intact reality based presentation ie organized and linear thought process. Eye contact is well-maintained. Conversational speech is within normal rate, tone and prosody. Intellectual abilities appear to be within the average range. Attention and concentration are good. Insight, judgment, impulse control are fair. Diagnosis: Major depressive disorder, recurrent severe without psychotic features per history provided by outpatient mental health provider Generalized anxiety disorder per history provided by outpatient mental health provider Medication recommendations per [facility]'s contracted psychiatrist Dr. Adan ADORNO are as follows Patient and were advised to follow up with PCP at [facility] with any further medication questions and/or concerns since medications were addressed during yesterday's visit. Impression\\plan: Patient is cleared from acute psychiatric services. Patient does not meet IVC criteria per MD GS 122C. Patient denies homicidal or suicidal ideation. Patient was able to appropriately engage in discussion of plan of care and admits to misunderstanding about her medication. Patient and were advised to immediately reach out to PCP before making any medication changes or stopping medications abruptly. Patient and were in agreement with plan. Patient's explained that they came to to ensure there is no medical concerns due to the loss of appetite and reestablishing medications. Clinician notes reestablishing medication schedule has been provided to patient from her primary care provider. Patient is unable to be transported to inpatient psychiatric treatment as she does not meet involuntary commitment. If the patient and patient's feel the patient need further psychiatric inpatient care they are able to explore voluntary. Unfortunately, voluntary is not a placement that [facility] can assist in with transport. Both patient and patient's disclosed understanding of this and report they feel it is unnecessary for inpatient psychiatric treatment at this time. While patient identifies an increase in anxiety this can also be contributed to her abrupt stop of multiple medications to include propanolol, BuSpar, Abilify and gabapentin. Patient's mental health provider identifies an increase in depression. Patient denies any thoughts of wanting to harm herself and her loss of appetite and weight loss can be directly correlated with her abrupt stop of medications. Patient's serves as the patient's primary full-time caregiver; he reports no concerns with the patient returning home to him and would prefer her not to go inpatient psychiatric treatment. Patient is recommended to follow-up with outpatient mental health services with her established provider, [facility]. Dr. Lindsey was consulted to care management of this patient; attending physicians in agreement with recommendations and disposition.
[2019-07-12] MEDS ORDERED: ONDANSETRON HCL INJ/PF 4 MG/2 ML SDV IV ONE (13:06)
[2019-07-12] MEDS ORDERED: POTASSIUM CHLORIDE 20 MEQ PACKET PO ONE (13:06)
[2019-07-12] MEDS ORDERED: CEFTRIAXONE 1 GM/D5W RTU 1 GM/50 ML RTUPB IV ONE (13:06)
--- NOTE | 2019-07-12 13:09 | ER Document Report ---
Doctor's Note Notes: 07/12/19 13:06 PHYSICAL EXAMINATION: GENERAL: Well-appearing and in no acute distress. HEAD: Atraumatic, normocephalic. EYES: sclera anicteric, conjunctiva are normal. ENT: nares patent, moist mucous membranes. NECK: Normal range of motion, supple without lymphadenopathy LUNGS: CTAB and equal. No wheezes rales or rhonchi. HEART: Regular rate and rhythm without murmurs ABDOMEN: Soft, no tenderness. No guarding, no rebound EXTREMITIES: Normal range of motion, no pitting edema. No cyanosis. BACK: No midline tenderness, no cva tenderness. NEUROLOGICAL: Cranial nerves grossly intact. Normal speech. PSYCH: Normal mood, normal affect. SKIN: Warm, Dry, normal turgor, no rashes or lesions noted 07/12/19 13:07 Reviewed patient's diagnostic evaluation vital signs as well as nurse note. Patient does not meet IVC criteria and does not request inpatient treatment at this time per mental health team and is cleared from a mental health standpoint. Patient did have incidental hypokalemia as well as mild UTI. Patient states she does have difficulty taking oral medicines and does complain of some nausea with her decreased appetite. Will give patient dose of anti-medic as well as a repeat dose of the potassium and dose of IV Rocephin prior to discharge.
[2019-07-12 13:57] VITALS: BP 147/104
== END 2019-07-12 14:12 | disposition home or self-care (01) ==
LOC: ER 17:16
DX: F33.2 Major depressive disorder, recurrent severe without psychotic features (principal); Z79.899 Other long term (current) drug therapy; N39.0 Urinary tract infection, site not specified; R31.9 Hematuria, unspecified; E87.6 Hypokalemia; R11.0 Nausea; R45.84 Anhedonia; R63.0 Anorexia; E86.0 Dehydration; R63.4 Abnormal weight loss; J45.909 Unspecified asthma, uncomplicated; Z91.14 Patient's other noncompliance with medication regimen; Z63.4 Disappearance and death of family member; Z88.2 Allergy status to sulfonamides; Z87.891 Personal history of nicotine dependence
CPT/HCPCS: 93005; 99285; 96361; 96375; 96365; 36415; 87086; 80307 ×3; 85025; 80053; 81001; 93010; J2405; J7030; J0696; J3490 ×2

== ENCOUNTER 2019-08-14 11:37 | Emergency (ER) | payer MEDICARE, BC ==
--- NOTE | 2019-08-14 11:55 | ER Document Report ---
ED Medical Screen (RME) - General Chief Complaint: Trouble Walking Stated Complaint: LEG WEAKNESS Time Seen by Provider: 08/14/19 11:50 Primary Care Provider: SHANTHI TAVERAS MD [Primary Care Provider] - Follow up as needed Mode of Arrival: Wheelchair Information source: Patient, Relative Notes: 59-year-old female with history of Parkinson's presents emergency department with feeling weak. Reports she was at the grocery store was able to walk and came back out the car they were getting out to go to the bank when she felt weak and reports she could not walk. Denies fever vomiting diarrhea. Denies chest pain but reports her right arm hurts. reports that she was just seen in the emergency department approximately 90 days ago for a electrolyte imbalance. reports she is talking and responding as normal. I have greeted and performed a rapid initial assessment of this patient. A comprehensive ED assessment and evaluation of the patient, analysis of test results and completion of the medical decision making process will be conducted by additional ED providers. Dictation of this chart was performed using voice recognition software; the refore, there may be some unintended grammatical errors. TRAVEL OUTSIDE OF THE [place] IN LAST 30 DAYS: No - Related Data Allergies/Adverse Reactions: Sulfa (Sulfonamide Antibiotics) Allergy (Verified 08/14/19 11:42) Past Medical History Pulmonary Medical History: Reports: Hx Asthma Renal/ Medical History: Denies: Hx Peritoneal Dialysis Psychiatric Medical History: Reports: Hx Depression Past Surgical History: Reports: Hx Hysterectomy, Hx Tubal Ligation - Immunizations Hx Diphtheria, Pertussis, Tetanus Vaccination: - unknown Physical Exam - Vital signs Vitals: Pulse BP Pulse Ox 141 H 128/94 H 97 08/14/19 11:44 08/14/19 11:44 08/14/19 11:44 Course - Vital Signs Vital signs: Temp Pulse Resp BP Pulse Ox 141 H 128/94 H 97 08/14/19 11:44 08/14/19 11:44 08/14/19 11:44 Doctor's Discharge - Discharge Referrals: SHANTHI TAVERAS MD [Primary Care Provider] - Follow up as needed
[2019-08-14 12:42] LABS: ABSOLUTE BASOPHILS # (AUTO) 0.1 10^3/uL (0.0-0.2); ABSOLUTE EOSINOPHILS # (AUTO) 0.3 10^3/uL (0.0-0.6); ABSOLUTE LYMPHOCYTES (AUTO) 1.1 10^3/uL (0.5-4.7); ABSOLUTE MONOCYTES (AUTO) 0.4 10^3/uL (0.1-1.4); ABSOLUTE NEUT (AUTO) 3.9 10^3/uL (1.7-8.2); BASOPHILS % (AUTO) 0.9 % (0-2); EOSINOPHILS % (AUTO) 5.7 % (0-6); HEMATOCRIT 43.6 % (36.0-47.0); LYMPHOCYTES % (AUTO) 18.6 % (13-45); MEAN CORPUSCULAR HEMOGLOBIN 30.3 pg (27.0-33.4); MEAN CORPUSCULAR HGB CONC 34.5 g/dL (32.0-36.0); MEAN CORPUSCULAR VOLUME 88 fl (80-97); MONOCYTES % (AUTO) 6.4 % (3-13); PLATELET COUNT 255 10^3/uL (150-450); RED BLOOD COUNT 4.97 10^6/uL (3.72-5.28); RED CELL DISTRIBUTION WIDTH 14.2 % (11.5-14.0); SEGMENTED NEUTROPHILS % (AUTO) 68.4 % (42-78); TOTAL CELLS COUNTED % (AUTO) 100 %; WHITE BLOOD COUNT 5.8 10^3/uL (4.0-10.5)
[2019-08-14 13:06] LABS: ALBUMIN 3.9 g/dL (3.5-5.0); ALKALINE PHOSPHATASE 223 U/L (38-126); ANION GAP 16 (5-19); ASPARTATE AMINO TRANSFERASE 86 U/L (14-36); BILIRUBIN,DIRECT 0.8 mg/dL (0.0-0.4); BILIRUBIN,TOTAL 1.4 mg/dL (0.2-1.3); BLOOD UREA NITROGEN 10 mg/dL (7-20); CALCIUM 9.8 mg/dL (8.4-10.2); CARBON DIOXIDE 20 mmol/L (22-30); CHLORIDE 104 mmol/L (98-107); GLUCOSE 166 mg/dL (75-110); POTASSIUM 3.3 mmol/L (3.6-5.0); TOTAL PROTEIN 7.8 g/dL (6.3-8.2)
[2019-08-14 15:33] LABS: APPEARANCE,URINE SLIGHTLY-CLOUDY; BILIRUBIN,URINE NEGATIVE (NEGATIVE); COLOR,URINE AMBER; GLUCOSE, URINE NEGATIVE (NEGATIVE); KETONES,URINE 80 mg/dL (NEGATIVE); LEUKOCYTE ESTERASE,URINE NEGATIVE (NEGATIVE); NITRITE,URINE NEGATIVE (NEGATIVE); PROTEIN,URINE 30 mg/dL (NEGATIVE); URINE SPECIFIC GRAVITY 1.024
[2019-08-14] MEDS ORDERED: RINGERS SOLUTION,LACTATED 1,000 ML IV ONE (15:36)
--- NOTE | 2019-08-14 15:48 | ER Document Report ---
ED General - General Chief Complaint: Weakness Stated Complaint: LEG WEAKNESS Time Seen by Provider: 08/14/19 11:50 Primary Care Provider: SHANTHI WALTERS MD [Primary Care Provider] - Follow up as needed Mode of Arrival: Wheelchair TRAVEL OUTSIDE OF THE [place] IN LAST 30 DAYS: No - HPI Onset: This morning Onset/Duration: Gradual Quality of pain: No pain Severity: Moderate Pain Level: 2 Context: Delightful 59 year old femal with PD and htn presents with with c/o generalized weakness. She was shopping this am and then went to the bank and was unable to ambulate due to generalized weakness. This was at about 11 am tod ay. - Related Data Allergies/Adverse Reactions: Sulfa (Sulfonamide Antibiotics) Allergy (Verified 08/14/19 11:42) Home Medications: [facility] Past Medical History - General Information source: Patient, Relative - Social History Smoking Status: Former Smoker Chew tobacco use (# tins/day): No Frequency of alcohol use: None Drug Abuse: None Family History: Reviewed & Not Pertinent, Other Patient has suicidal ideation: No Patient has homicidal ideation: No Pulmonary Medical History: Reports: Hx Asthma Renal/ Medical History: Denies: Hx Peritoneal Dialysis Psychiatric Medical History: Reports: Hx Depression Past Surgical History: Reports: Hx Hysterectomy, Hx Tubal Ligation - Immunizations Hx Diphtheria, Pertussis, Tetanus Vaccination: - unknown Hx Pneumococcal Vaccination: 07/02/16 Review of Systems - Review of Systems Constitutional: Weakness EENT: No symptoms reported Cardiovascular: No symptoms reported Respiratory: No symptoms reported Gastrointestinal: No symptoms reported Genitourinary: No symptoms reported Female Genitourinary: No symptoms reported Musculoskeletal: No symptoms reported Skin: No symptoms reported Hematologic/Lymphatic: No symptoms reported Neurological/Psychological: No symptoms reported Physical Exam - Vital signs Vitals: Pulse BP Pulse Ox 141 H 128/94 H 97 08/14/19 11:44 08/14/19 11:44 08/14/19 11:44 Interpretation: Normal - General General appearance: Appears well, Alert - HEENT Head: Normocephalic, Atraumatic Eyes: Normal Pupils: PERRL - Respiratory Respiratory status: No respiratory distress Chest status: Nontender Breath sounds: Normal Chest palpation: Normal - Cardiovascular Rhythm: Regular Heart sounds: Normal auscultation Murmur: No - Abdominal Inspection: Normal Distension: No distension Bowel sounds: Normal Tenderness: Nontender Organomegaly: No organomegaly - Back Back: Normal, Nontender - Extremities General upper extremity: Normal inspection, Nontender, Normal color, Normal ROM, Normal temperature General lower extremity: Normal inspection, Nontender, Normal color, Normal ROM, Normal temperature, Normal weight bearing. No: Anjali's sign - Neurological Neuro grossly intact: Yes Cognition: Normal Orientation: AAOx4 Constantia Coma Scale Eye Opening: Spontaneous Nanda Coma Scale Verbal: Oriented Nanda Coma Scale Motor: Obeys Commands Constantia Coma Scale Total: 15 Speech: Normal Motor strength normal: LUE, RUE, LLE, RLE Sensory: Normal - Psychological Associated symptoms: Normal affect, Normal mood - Skin Skin Temperature: Warm Skin Moisture: Dry Skin Color: Normal Course - Re-evaluation Re-evalutation: 08/14/19 18:26 MDM Frail 59 year old with PD is here with generalized weakness. Not drinking the last 2 days at home. K low here. After IVF here walks at baseline per . We discussed follow up with Dr. Walters and the is comfortable with going home and following up. Initially tachy here but that is much better after IVF. - Vital Signs Vital signs: Temp Pulse Resp BP Pulse Ox 98.5 F 115 H 23 H 132/80 H 97 08/14/19 18:45 08/14/19 18:45 08/14/19 18:45 08/14/19 18:45 08/14/19 18:45 - Laboratory Result Diagrams: 08/14/19 12:25 08/14/19 12:25 Laboratory results interpreted by me: 08/14/19 08/14/19 08/14/19 12:25 12:25 15:03 RDW 14.2 H Potassium 3.3 L Carbon Dioxide 20 L Glucose 166 H Total Bilirubin 1.4 H Direct Bilirubin 0.8 H AST 86 H Alkaline Phosphatase 223 H Urine Protein 30 H Urine Ketones 80 H Urine Blood SMALL H Urine Urobilinogen 4.0 H - Diagnostic Test Radiology reviewed: Image reviewed - EKG Interpretation by Me EKG shows normal: Sinus rhythm Rate: Tachycardia When compared to previous EKG there are: No significant change - Sinus Tachy [address] elevation or depression repol ab my interpretation. Discharge - Discharge Clinical Impression: Hypokalemia, Dehydration, Parkinson disease Condition: Good Disposition: HOME, SELF-CARE Instructions: Dehydration ([facility]), Hypokalemia ([facility]) Additional Instructions: See your doctor in follow up. Rest. Please return here for any problems or concerns. Prescriptions: Potassium Chloride [Klor-Con 10 Meq Capsule ER] 10 meq PO DAILY #7 capsule.er Referrals: SHANTHI WALTERS MD [Primary Care Provider] - Follow up as needed
[2019-08-14] MEDS ORDERED: POTASSIUM CHLORIDE 10 MEQ CAPSULE.ER PO ONE (16:45)
--- NOTE | 2019-08-14 18:26 | RADIOLOGY REPORT (SQ) ---
EXAM DESCRIPTION: CHEST SINGLE VIEW COMPLETED DATE/TIME: 08/14/2019 6:01 pm REASON FOR STUDY: htn COMPARISON: 08/11/2016 TECHNIQUE: Single frontal radiographic view of the chest acquired. NUMBER OF VIEWS: One view. LIMITATIONS: None. FINDINGS: LUNGS AND PLEURA: No pneumothorax. No consolidation or pleural effusion. MEDIASTINUM AND HILAR STRUCTURES: Stable. HEART AND VASCULAR STRUCTURES: Stable. BONES: No acute findings. HARDWARE: None in the chest. OTHER: No other significant finding. IMPRESSION: NO ACUTE FINDINGS. TECHNICAL DOCUMENTATION: JOB ID: [id number] [id number] 2010 [facility] [facility] [employer]- All Rights Reserved Reading location - IP/workstation name: [email or web address]
[2019-08-14 18:50] VITALS: BP 132/80
--- NOTE | 2019-08-14 23:30 | EKG REPORT ---
SEVERITY:- ABNORMAL ECG - SINUS TACHYCARDIA PROBABLE LEFT ATRIAL ABNORMALITY BORDERLINE LEFT AXIS DEVIATION NONSPECIFIC T ABNORMALITIES, DIFFUSE LEADS : Confirmed by: Cecy Del Valle MD 14-Aug-2019 23:30:08
== END 2019-08-14 18:45 | disposition home or self-care (01) ==
LOC: ER 11:37
DX: E87.6 Hypokalemia (principal); E86.0 Dehydration; G20 Parkinson's disease; M62.81 Muscle weakness (generalized); Z87.891 Personal history of nicotine dependence; J45.909 Unspecified asthma, uncomplicated
CPT/HCPCS: 93005; 36415; 83735; 85025; 80053; 81001; 84484; 71045; 93010; J7120; A9270

== ENCOUNTER 2019-08-16 08:29 | Emergency (ER) | payer MEDICARE, BC ==
[2019-08-16] MEDS ORDERED: NORMAL SALINE 1000 ML 1,000 ML IV ONE (11:53)
[2019-08-16] MEDS ORDERED: ONDANSETRON HCL INJ/PF 4 MG/2 ML SDV IV ONE (11:53)
--- NOTE | 2019-08-16 11:55 | ER Document Report ---
ED Medical Screen (RME) - General Chief Complaint: Abdominal Pain Stated Complaint: WEAKNESS Time Seen by Provider: 08/16/19 11:53 Primary Care Provider: SHANTHI TAVERAS MD [Primary Care Provider] - Follow up as needed Notes: Patient is a 59-year-old female with a history of Parkinson's who presents to emergency department with a chief complaint of headache. reports that the patient was seen here 2 days ago with dehydration and a low potassium level. He reports that over the past 2 days she has developed a headache. Patient reports her headache is a 2 out of 5. Denies history of migraines. r eports she did vomit once yesterday after eating greasy chicken from [facility] but has been tolerating liquids and staying hydrated. Denies fever. TRAVEL OUTSIDE OF THE [place] IN LAST 30 DAYS: No - Related Data Allergies/Adverse Reactions: Sulfa (Sulfonamide Antibiotics) Allergy (Verified 08/16/19 08:34) Past Medical History - Social History Chew tobacco use (# tins/day): No Frequency of alcohol use: None Drug Abuse: None Pulmonary Medical History: Reports: Hx Asthma Neurological Medical History: Reports: Hx Migraine Renal/ Medical History: Denies: Hx Peritoneal Dialysis Psychiatric Medical History: Reports: Hx Depression - anxiety Past Surgical History: Reports: Hx Hysterectomy, Hx Orthopedic Surgery - cervical fusion, Hx Tubal Ligation - Immunizations Hx Diphtheria, Pertussis, Tetanus Vaccination: - unknown Physical Exam - Vital signs Vitals: Temp Pulse Resp BP Pulse Ox 97.4 F 113 H 16 136/80 H 97 08/16/19 08:33 08/16/19 08:33 08/16/19 08:33 08/16/19 08:33 08/16/19 08:33 Course - Re-evaluation Re-evalutation: 08/16/19 11:55 I have greeted and performed a rapid initial assessment of this patient. A comprehensive ED assessment and evaluation of the patient, analysis of test results and completion of the medical decision making process will be conducted by additional ED providers. - Vital Signs Vital signs: Temp Pulse Resp BP Pulse Ox 97.4 F 113 H 16 136/80 H 97 08/16/19 08:33 08/16/19 08:33 08/16/19 08:33 08/16/19 08:33 08/16/19 08:33 Doctor's Discharge - Discharge Referrals: SHANTHI TAVERAS MD [Primary Care Provider] - Follow up as needed
[2019-08-16] MEDS ORDERED: PROCHLORPERAZINE EDISYLATE INJ 10 MG/2 ML VIAL IV ONE (12:50)
[2019-08-16] MEDS ORDERED: DIPHENHYDRAMINE HCL 50 MG/ML VIAL IV ONE (12:50)
[2019-08-16] MEDS ORDERED: KETOROLAC TROMETHAMINE INJ/PF 30 MG/1 ML SDV IV ONE (12:50)
--- NOTE | 2019-08-16 12:50 | ER Document Report ---
ED General - General Chief Complaint: Abdominal Pain Stated Complaint: WEAKNESS Time Seen by Provider: 08/16/19 11:53 Primary Care Provider: SHANTHI TAVERAS MD [Primary Care Provider] - Follow up as needed TRAVEL OUTSIDE OF THE [place] IN LAST 30 DAYS: No - HPI Notes: Patient is a 59-year-old female with a history of Parkinson's disease and hypertension who presents complaining of a mild headache that is been persistent since this morning. Patient states that it is not the worst headache of her life and did not start as a thunderclap. Patient states that she has had headaches like this in the past. Patient states that she does have some associated light sensitivity. She is otherwise able to eat and drink without difficulty. She is urinating normally and having normal bowel movements. states that she has baseline with speech, mentation, and ambulation. Patient states that she is otherwise feeling well. She was seen yesterday and was given fluids for dehydration as well as potassium. She has no other concerns or complaints. Denies any fever, head injury, neck pain, changes in vision/speech/mentation/hearing, URI, sore throat, chest pain, palpitations, syncope, cough, shortness of breath, wheeze, dyspnea, abdominal pain, nausea/vomiting/diarrhea, urinary retention, dysuria, hematuria, loss of control of bowel or bladder, numbness/tingling, saddle anesthesia, muscle paralysis, or rash. - Related Data Allergies/Adverse Reactions: Sulfa (Sulfonamide Antibiotics) Allergy (Verified 08/16/19 08:34) Past Medical History - Social History Smoking Status: Former Smoker Chew tobacco use (# tins/day): No Frequency of alcohol use: None Drug Abuse: None Family History: Reviewed & Not Pertinent, Other Patient has suicidal ideation: No Patient has homicidal ideation: No Pulmonary Medical History: Reports: Hx Asthma Neurological Medical History: Reports: Hx Migraine Renal/ Medical History: Denies: Hx Peritoneal Dialysis Psychiatric Medical History: Reports: Hx Depression - anxiety Past Surgical History: Reports: Hx Hysterectomy, Hx Orthopedic Surgery - cervic al fusion, Hx Tubal Ligation - Immunizations Hx Diphtheria, Pertussis, Tetanus Vaccination: - unknown Hx Pneumococcal Vaccination: 07/02/16 Review of Systems - Review of Systems -: Yes All other systems reviewed and negative Physical Exam - Vital signs Vitals: Temp Pulse Resp BP Pulse Ox 97.4 F 113 H 16 136/80 H 97 08/16/19 08:33 08/16/19 08:33 08/16/19 08:33 08/16/19 08:33 08/16/19 08:33 - Notes Notes: PHYSICAL EXAMINATION: GENERAL: Well-appearing, well-nourished and in no acute distress. A&Ox4. Answers questions appropriately. HEAD: Atraumatic, normocephalic. Non-tender. EYES: Pupils equal round and reactive to light, extraocular movements intact, sclera anicteric, conjunctiva are normal. No nystagmus. vis ayala intact. ENT: Nares patent and without discharge. oropharynx clear without exudates. No tonsilar hypertrophy or erythema. Moist mucous membranes. NECK: Normal range of motion, supple without lymphadenopathy. No rigidity/meningismus. No midline tenderness. LUNGS: Breath sounds clear to auscultation bilaterally and equal. No wheezes rales or rhonchi. HEART: Regular rate and rhythm without murmurs, rubs, gallops. ABDOMEN: Soft, nontender, nondistended abdomen. No guarding, no rebound. Normal bowel sounds present. No CVA tenderness bilaterally. Musculoskeletal: Ext b/l: FROM to passive/active. Strength 5+/5. No deficits noted. No bony tenderness of extremities. Extremities: No cyanosis, clubbing, or edema b/l. Peripheral pulses 2+. Capillary refill less than 2 seconds. NEUROLOGICAL: NIH 0. GCS 15. Cranial nerves grossly intact. Normal speech, normal gait. Normal sensory, motor exams. Reflexes 2+ b/l. NARDA's negative. Pronator drift negative. PSYCH: Normal mood, normal affect. SKIN: Warm, Dry, normal turgor, no rashes or lesions noted. Course - Re-evaluation Re-evalutation: 08/16/19 14:13 Patient is an afebrile, well-hydrated, 59-year-old female who presents to the ED with a headache, suspect benign. Vitals are acceptable without any significant tachycardia, tachypnea, or hypoxia. PE is otherwise unremarkable for any focal neurological deficits. NIH 0, GCS 15, cranial nerves grossly intact. Patient has had headaches like this in the past recently. No labs or imaging warranted at this time based on H&P. Patient was given Toradol, Compazine, and benadryl which has resolved her headache. She also received some fluids. Labs unremarkable. Patient states that she is feeling much better and would like to go home. She is nontoxic-appearing and is tolerating p.o. without any difficulties. Low suspicion for any acute glaucoma, temporal arteritis, meningitis, intracranial hemorrhage, ischemic stroke, or fracture at this time. Patient is aware that this condition can change from initial presentation and that she needs to monitor symptoms closely for any acute changes. Recheck with your PCM/neurologist in 3-5 days. Return to the ED with any worsening/concerning symptoms otherwise as reviewed in discharge. Patient is in agreement. - Vital Signs Vital signs: Temp Pulse Resp BP Pulse Ox 97.4 F 113 H 16 136/80 H 97 08/16/19 08:33 08/16/19 08:33 08/16/19 08:33 08/16/19 08:33 08/16/19 08:33 - Laboratory Result Diagrams: 08/16/19 12:34 08/16/19 12:34 Laboratory results interpreted by me: 08/16/19 08/16/19 08/16/19 12:34 12:34 12:34 RDW 14.4 H Potassium 3.5 L AST 43 H Alkaline Phosphatase 181 H Urine Protein 30 H Urine Ketones TRACE H Urine Blood SMALL H Urine Bilirubin SMALL H Urine Urobilinogen 4.0 H Ur Leukocyte Esterase TRACE H Discharge - Discharge Clinical Impression: Headache Qualifiers: Headache type: unspecified Headache chronicity pattern: acute headache Intractability: not intractable Qualified Code(s): R51 - Headache Condition: Stable Disposition: HOME, SELF-CARE Instructions: Headache ([facility]) Additional Instructions: Rest, Ice/cool compress Tylenol/ibuprofen as needed Light stretches daily Strength exercises as able Moist heat and massage may help F/u with your PCP in 3-5 days for a recheck Consider consult(s) with Neurology for ongoing/worsening symptoms Return to the ED with any worsening symptoms and/or development of fever, headache, changes in behavior/mentation/vision/speech, chest pain, palpitations, syncope, shortness of breath, trouble breathing, abdominal pain, n/v/d, blood in stool/urine, loss of control of bowel/bladder, urinary retention, muscle weak ness/paralysis, saddle anesthesia, numbness/tingling, or other worsening symptoms that are concerning to you. Forms: Elevated Blood Pressure Referrals: SHANTHI TAVERAS MD [Primary Care Provider] - Follow up as needed
[2019-08-16 13:08] LABS: ABSOLUTE BASOPHILS # (AUTO) 0.1 10^3/uL (0.0-0.2); ABSOLUTE EOSINOPHILS # (AUTO) 0.4 10^3/uL (0.0-0.6); ABSOLUTE LYMPHOCYTES (AUTO) 1.4 10^3/uL (0.5-4.7); ABSOLUTE MONOCYTES (AUTO) 0.4 10^3/uL (0.1-1.4); ABSOLUTE NEUT (AUTO) 3.8 10^3/uL (1.7-8.2); BASOPHILS % (AUTO) 1.2 % (0-2); EOSINOPHILS % (AUTO) 5.8 % (0-6); HEMATOCRIT 39.3 % (36.0-47.0); HEMOGLOBIN 13.5 g/dL (12.0-15.5); LYMPHOCYTES % (AUTO) 23.5 % (13-45); MEAN CORPUSCULAR HEMOGLOBIN 30.6 pg (27.0-33.4); MEAN CORPUSCULAR HGB CONC 34.4 g/dL (32.0-36.0); MEAN CORPUSCULAR VOLUME 89 fl (80-97); MONOCYTES % (AUTO) 6.6 % (3-13); PLATELET COUNT 280 10^3/uL (150-450); RED BLOOD COUNT 4.42 10^6/uL (3.72-5.28); RED CELL DISTRIBUTION WIDTH 14.4 % (11.5-14.0); SEGMENTED NEUTROPHILS % (AUTO) 62.9 % (42-78); TOTAL CELLS COUNTED % (AUTO) 100 %; WHITE BLOOD COUNT 6.1 10^3/uL (4.0-10.5)
[2019-08-16 13:17] LABS: APPEARANCE,URINE SLIGHTLY-CLOUDY; BILIRUBIN,URINE SMALL (NEGATIVE); COLOR,URINE AMBER; GLUCOSE, URINE NEGATIVE (NEGATIVE); KETONES,URINE TRACE mg/dL (NEGATIVE); LEUKOCYTE ESTERASE,URINE TRACE (NEGATIVE); NITRITE,URINE NEGATIVE (NEGATIVE); PROTEIN,URINE 30 mg/dL (NEGATIVE); URINE SPECIFIC GRAVITY 1.026
[2019-08-16 13:28] LABS: ALBUMIN 3.5 g/dL (3.5-5.0); ALKALINE PHOSPHATASE 181 U/L (38-126); ANION GAP 12 (5-19); ASPARTATE AMINO TRANSFERASE 43 U/L (14-36); BILIRUBIN,DIRECT 0.4 mg/dL (0.0-0.4); BILIRUBIN,TOTAL 0.9 mg/dL (0.2-1.3); BLOOD UREA NITROGEN 11 mg/dL (7-20); CALCIUM 9.2 mg/dL (8.4-10.2); CARBON DIOXIDE 23 mmol/L (22-30); CHLORIDE 104 mmol/L (98-107); GLUCOSE 110 mg/dL (75-110); POTASSIUM 3.5 mmol/L (3.6-5.0); TOTAL PROTEIN 7.1 g/dL (6.3-8.2)
[2019-08-16 14:45] VITALS: BP 114/71
== END 2019-08-16 14:45 | disposition home or self-care (01) ==
LOC: ER 08:29
DX: R51 Headache (principal); H53.149 Visual discomfort, unspecified; G20 Parkinson's disease; I10 Essential (primary) hypertension; J45.909 Unspecified asthma, uncomplicated; Z87.891 Personal history of nicotine dependence; Z88.2 Allergy status to sulfonamides
CPT/HCPCS: 36415; 83690; 85025; 80053; 81001; J1200; J1885; J0780; J7030; 96361; 96374; 96375; 99284

== ENCOUNTER → 2019-08-27 | Outpatient (CLI) | payer MEDICARE, BC ==
[2019-08-27 10:15] LABS: INTERNATIONAL RATION (INR) 2.67
== END ==
LOC: OD 08:40
PROVIDERS: ATTEND Family Medicine
DX: Z79.01 Long term (current) use of anticoagulants (principal); E87.6 Hypokalemia
CPT/HCPCS: 36415; 84132; 85610

== ENCOUNTER → 2019-12-09 | Outpatient (CLI) | payer MEDICARE, BC ==
--- NOTE | 2019-12-09 12:53 | WOMENS IMAGING REPORT ---
EXAM DESCRIPTION: 3D SCREENING MAMMO BILAT COMPLETED DATE/TIME: 12/09/2019 9:56 am REASON FOR STUDY: Z12.31 ENCOUNTER FOR SCREENING MAMMOGRAM FOR MALIGNANT NEOPLASM OF BREAST Z12.31 ENCNTR SCREEN MAMMOGRAM FOR MALIGNANT NEOPLASM OF PRINCE COMPARISON: Priors going back to 2009 EXAM PARAMETERS: Standard craniocaudal and mediolateral oblique views of each breast recorded using digital acquisition and breast tomosynthesis. Additional "push-back craniocaudal and mediolateral ob lique images acquired. Read with the assistance of CAD. .[facility] - [employer] [employer] Version 9.2 LIMITATIONS: Implants are suboptimally assessed, posteriorly displaced and out of the field of view. Best images possible. FINDINGS: IMPLANTS: Incompletely assessed, subpectoral. Findings present which are benign by mammographic criteria. No suspicious masses, calcifications or a rchitectural distortion. Benign mammographic findings may include one or more of the following: Smooth masses, popcorn/rim/co arse calcifications, asymmetries, post-procedure changes, and lesions with long-standing stability. IMPRESSION: BENIGN MAMMOGRAPHIC FINDINGS. BIRADS 2 BREAST DENSITY: b. There are scattered areas of fibroglandular density. BIRAD: ASSESSMENT: 2 BENIGN FINDING(S) RECOMMENDATION: ROUTINE SCREENING COMMENT: The patient has been notified of the results by letter per MQSA requirements. Additional no tification policies are in place for contacting patient with suspicious or incomplete findings. Quality ID #[id number]: The [employer] recommends an annual screening mammogram for women aged 40 years or over. This facility utilizes a reminder system to ensure that all patients receive reminder letters, and/or direct phone calls for appointments. This includes reminders for routine scr eening mammograms, diagnostic mammograms, or other Breast Imaging Interventions when appropriate. Th is patient will be placed in the appropriate reminder system. TECHNICAL DOCUMENTATION: FINDING NUMBER: (1) ASSESSMENT: (1) JOB ID: [id number] 2010 [employer]- All Rights Reserved Reading location - IP/workstation name: [email or web address]
== END ==
LOC: WI 09:29
PROVIDERS: ATTEND Family Medicine
DX: Z12.31 Encounter for screening mammogram for malignant neoplasm of breast (principal)
CPT/HCPCS: 77063; 77067